=== PATIENT | male | born 1970 | race Two or more races ===

== ENCOUNTER 2020-04-01 04:05 | Emergency (ER) | payer MEDICAID, OTHER ==
[~2020-04-01] VITALS: Ht 185.4 cm; Wt 176.0 kg
--- NOTE | 2020-04-01 04:23 | NUR ---
PT [facility] P[facility] UP [facility](LOCATED AT [address] [place] [address]. TEL: [phone]) FOR C/O "PT DOES NOT LIKE HIS ROOM AND THE PLACE HE'S STAYING AT AND HE WANTS TO BE TRANSFERRED TO A DIFFERENT PLACE". PT DENIED ANY PAIN OR DISCOMFORT AT THSI TIME. PT W/ A TRACH IN [place] WITH O2 AT 3LPM. PT WAS TRANSFERRED TO BED 10 AND PLACED ON A MONITOR. VSS.
--- NOTE | 2020-04-01 05:33 | NUR ---
PT ASKED FOR BLANKETS AND TO PROVIDE HIM W A TV. VSS.
[2020-04-01 05:51] LABS: BASOPHILS # (AUTO) 0.1 /CMM (0.0-0.2); BASOPHILS % (AUTO) 0.9 % (0.0-2.0); EOSINOPHILS % (AUTO) 8.7 % (0.0-6.0); HEMATOCRIT 30 % (39-51); HEMOGLOBIN 9.4 g/dL (13.5-17.5); LYMPHOCYTES # (AUTO) 1.7 /CMM (0.8-4.8); LYMPHOCYTES % (AUTO) 21.6 % (20.0-44.0); MEAN CORPUSCULAR HGB CONC 31 g/dl (31.0-36.0); MEAN CORPUSCULAR VOLUME 89 fL (80-96); MONOCYTES # (AUTO) 0.6 /CMM (0.1-1.30); MONOCYTES % (AUTO) 7.6 % (2.0-12.0); NEUTROPHILS # (AUTO) 4.9 /CMM (1.8-8.9); NEUTROPHILS % (AUTO) 61.2 % (43.0-81.0); PLATELET COUNT (AUTO) 295 /CMM (150-450); RED BLOOD CELL COUNT(AUTO) 3.36 MIL/uL (4.5-6.0)
--- NOTE | 2020-04-01 06:34 | NUR ---
PT CHANGED AND PROVIDED WITH MORE BLANKETS.
--- NOTE | 2020-04-01 06:34 | NUR ---
PT REQUESTING TO BE PLACED IN ANOTHER BED, EXPLAINED TO PT THAT ALL BEDS IN THE E.D. IS THE SAME SIZE.
[2020-04-01 06:43] LABS: ALBUMIN 2.7 g/dL (3.4-5.0); BILIRUBIN,DIRECT 0.1 mg/dL (0.0-0.2); BILIRUBIN,TOTAL 0.2 mg/dL (0.2-1.0); CALCIUM, SERUM 9.9 mg/dL (8.5-10.1); CREATININE 0.9 mg/dL (0.6-1.3); POTASSIUM 4.3 mmol/L (3.5-5.1)
--- NOTE | 2020-04-01 10:08 | NUR ---
Principal Strategist met the patient at bedside. Patient has a trach. SW confirmed demographics on facesheet with patient including date of and social security number. Per MD note, patient called 911, picked up from [facility] and per MD report patient stated that he did not like his room and that he would like to be transferred to a different place. Per patient, he stated that the [facility] facility he was at, did not have the correct equipment to take care of him and his trach. Patient requested to be moved to a different bed. Patient requested this SW to call mother Nimo and brother Max . Patient requested to be transferred to a different facility for trach needs. Plan: SW to call mother Nimo and brothshay Hando to obtain more information. SW to call [facility] to learn more about situation. SW to request assistance in placement from Case Management team.
--- NOTE | 2020-04-01 10:08 | NUR ---
SW to called mother Nimo and brother Max to obtain more information. Mother could not provide more information regarding patient history at [facility]. Per mother, Max is the one who knows this information. This SW attempted to call Max but was unsuccessful and could not leave a message.
--- NOTE | 2020-04-01 10:35 | NUR ---
This SW consulted with Case Management team about patient. Plan: SW to speak to patient's insurance ([employer]) [employer] for new placement. NUT SIFTERNIKOLAS Bull notified.
--- NOTE | 2020-04-01 10:35 | NUR ---
MARGE AT BEDSIDE FOR CONSULT, PER SSD, SHE'LL CONTACT [facility] FOR PLACEMENT.
--- NOTE | 2020-04-01 11:22 | NUR ---
CALLED [facility] FOR POSSIBLE PLACEMENT.
--- NOTE | 2020-04-01 11:24 | NUR ---
[facility]UCY [facility] CALLED. WANTS ME TO FAX PATIENT INFO WELL NEGATIVE COVID RESULT FOR SNF PLACEMENT. CELL: [phone] FAX: [phone]
--- NOTE | 2020-04-01 12:06 | NUR ---
COVID SWAB SENT TO LAB.
--- NOTE | 2020-04-01 13:07 | NUR ---
PATIENT RESTING, NO DISTRESS NOTED.
--- NOTE | 2020-04-01 13:39 | NUR ---
PER LAB, COVID RESULT IS NEGATIVE
--- NOTE | 2020-04-01 14:21 | NUR ---
PATIENT AGREED TO GO BACK TO THE FACILITY BECAUSE ACCORDING TO THE SWEAT BAND SEPARATOR, THERE'S NO OTHER FACILITY FOR THE PATIENT AT THIS TIME. INFORMED CM THAT THE PATIENT IS REQUESTING FOR A DIFFERENT ROOM.
--- NOTE | 2020-04-01 15:30 | NUR ---
PER CM, SHE'S TRYING TO ARRANGE TRANSPORTATION.
--- NOTE | 2020-04-01 16:46 | NUR ---
SPOKE TO BYRON SANDS AND SHE INFORMED ME THAT SHE IS STILL TRYING TO GET AN AMBULANCE. SHE WILL CALL BACK WITH AN ETA
--- NOTE | 2020-04-01 17:00 | NUR ---
PATIENT PROVIDED A MECHANICAL SOFT DIET. RECEIVED INFORMATION THAT PATIENT'S DIET AT THE FACILITY IS MECHANICAL SOFT.
--- NOTE | 2020-04-01 17:41 | NUR ---
PER BYRON SANDS ETA FOR [facility] IS 2000
--- NOTE | 2020-04-01 18:58 | NUR ---
PATIENT TOLERATED MEAL. NEEDS ATTENDED. KEPT COMFORTABLE.
--- NOTE | 2020-04-01 19:24 | NUR ---
PER BYRON SANDS, SHE SPOKE TO THE CHARGE NURSE AT THE PT'S FACILITY AND WAS TOLD THAT THE FACILITY DID IN FACT HAVE A BARIATRIC BED WAITING FOR HIM.
--- NOTE | 2020-04-01 19:36 | NUR ---
PT INFORMED REGARDING TRANSPORT. PT AAOX4, VSS, RESPIRATIONS EVEN AND UNLABORED W/ AND NOTED. PT CONNECTED TO THE MONITOR AND POX. PT HAS NO MEDICAL COMPLAINTS AT THIS TIME.
--- NOTE | 2020-04-01 20:29 | NUR ---
REPORT GIVEN TO [facility]. PT STABLE FOR DC
--- NOTE | 2020-04-01 20:59 | NUR ---
Patient discharged to home in stable condition. Written and verbal after care instructions given. Patient verbalizes understanding of instruction.
[2020-04-01 21:00] VITALS: BP 142/75
== END 2020-04-01 21:00 ==
LOC: ER 04:08
DX: Z02.2 Encounter for examination for admission to residential institution (principal); Z60.9 Problem related to social environment, unspecified; Z93.0 Tracheostomy status; E66.9 Obesity, unspecified; E11.9 Type 2 diabetes mellitus without complications; Z20.828 Contact with and (suspected) exposure to other viral communicable diseases; I10 Essential (primary) hypertension
CPT/HCPCS: 36415; 80048; 80076; 83690; 85025; 87426; 99285; C9803